=== PATIENT | male | born 1950 | race Caucasian/White ===

== ENCOUNTER → 2017-01-23 | Day surgery (SDC) | payer OTHER ==
[~2017-01-23] MED LIST: BUPIVACAINE/EPINEPHRINE 0.5% PF 30 ML VIAL INFIL ONE; CYCL-36 PO; LACTATED RINGER'S 1000 ML INJ 1,000 ML ONE; LIDOCAINE 0.5%/EPINEPHrine 1:200,000 SOLN 50 ML VIAL ONE; LIDOCAINE 1.5%/EPINEPHrine 1:200,000 PF SOLN 30 ML AMP ONE; LORT5TAB PO; MIDAZOLAM HCL 2 MG/2 ML VIAL ONE; ONDANSETRON HCL 4 MG/2 ML VIAL IV PUSH ONE; PROPOFOL 200 MG/20 ML AMP IV ONE; Z.0.NO CURRENT MEDS
--- NOTE | 2017-01-23 12:36 | TN ---
cc: JESÚS IZQUIERDO M.D. DATE OF SURGERY: 01/23/2017 PREOPERATIVE DIAGNOSIS Two skin lesions on the left mid back out laterally. POSTOPERATIVE DIAGNOSIS Two skin lesions on the left mid back out laterally. PROCEDURE Excision of two skin lesions with elliptical incision measuring 8 x 4 cm with double-layer closure. ANESTHESIA LMA. SURGEON Dr. Izquierdo. INDICATION This is a pleasant 66-year-old gentleman who had a history of what appeared to be a ruptured epidermal inclusion cyst, sebaceous cyst, both in very close proximity. Plans were made for removal. DETAILS OF PROCEDURE The patient was taken to the operating room and placed in the supine position. After anesthesia he is placed in the right lateral decubitus position. The area in question had been previously marked. An elliptical incision is made 4 x 8 cm after anesthetizing with Marcaine solution. We dissect down to the deep subcutaneous tissue, removing the entirety of the mass, 4 x 8 cm. We then create flaps superiorly and inferiorly to reapproximate the deep layer with 3-0 Vicryl and skin with 3-0 nylon. A sterile bandage is applied. The patient tolerated the procedure well with no immediate post-op complications. MD MIGUEL Jean/KEL /12:16 PM /12:25 PM
== END | disposition home or self-care (01) ==
LOC: ESDC 07:45
PROVIDERS: ATTEND Surgery
DX: L72.0 Epidermal cyst (principal)
CPT/HCPCS: 00300; 11406; 88304; J2250; J2405; J3010; J7120; 88305